=== PATIENT | male | born 1940 | race Caucasian/White ===

== ENCOUNTER 2022-10-29 10:14 | Emergency (ER) | payer MEDICARE, OTHER | END 2022-10-29 14:05 | disposition home or self-care (01) | LOC: JD.ED 10:14 | DX: J18.9 Pneumonia, unspecified organism (principal); Z88.1 Allergy status to other antibiotic agents | CPT/HCPCS: 36415; 71045; 71045-26; 80053; 83605; 83880; 84484; 85025; 86140; 93005; 93010; 99284; 99285 ==

== ENCOUNTER 2022-11-01 07:46 | Emergency (ER) | payer MEDICARE, OTHER | END 2022-11-01 10:13 | disposition home or self-care (01) | LOC: JD.ED 07:46 | DX: M79.604 Pain in right leg (principal); Z88.1 Allergy status to other antibiotic agents; Z79.82 Long term (current) use of aspirin | CPT/HCPCS: 93971-26-RT; 93971-RT; 99283 ==

== ENCOUNTER → 2024-06-11 | Day surgery (SDC) | payer MEDICARE, OTHER ==
[~2024-06-11] MED LIST: Dexamethasone 4 MG/ML 5 ML MDV ONE; EPINEPHrine 1 MG/ML SDV ONE; HYDROmorphone 0.5 MG/0.5 ML Syringe IVPUSH PRN; Ketorolac 15 MG/ML SDV ONE; Lactated Ringers 1,000 ML ONE; Lidocaine 1% 5 ML VIAL ONE; Midazolam 1 MG/ML 2 ML SDV ONE; Morphine 8 MG, EPINEPHrine 0.3 MG, Cefuroxime 750 MG, Ketorolac 30 MG, Sodium Chloride ... PRN; Ondansetron 4 MG/2 ML SDV IVPUSH PRN; Ondansetron 4 MG/2 ML SDV ONE; Phenylephrine 1% 10 MG/ML SDV ONE; Propofol 200 MG/20 ML SDV ONE; Ropivacaine 0.5% 5 MG/ML 30 ML SDV ONE; Sodium Chloride 0.9% 10 ML Syringe FLUSH PRN; Sodium Chloride 0.9% 10 ML Syringe FLUSH SCH; ceFAZolin 2 GM Vial ONE; ePHEDrine 50 MG/ML SDV ONE; fentaNYL 100 MCG/2 ML SDV IVPUSH PRN; fentaNYL 100 MCG/2 ML SDV ONE
[2024-06-11] MEDS: Lactated Ringers 1,000 ML IV SCH (08:15)
[2024-06-11] MEDS: Albuterol 0.083% 2.5 MG/3 ML Neb Soln NEB ONE (08:36)
[2024-06-11] MEDS: Acetaminophen/HYDROcodone 325-5 MG Tab PO PRN (13:33)
[2024-06-11] MEDS: Tranexamic Acid 1,000 MG/10 ML Vial ONE (13:33)
[2024-06-11] MEDS: Vancomycin 1 GM SDV ONE (13:35)
[2024-06-11] MEDS: Morphine 8 MG, EPINEPHrine 0.3 MG, Cefuroxime 750 MG, Ketorolac 30 MG, Sodium Chloride ... PRN (13:37)
== END | disposition home or self-care (01) ==
LOC: JD.SDS 07:43
PROVIDERS: ATTEND Orthopaedic Surgery
DX: M17.0 Bilateral primary osteoarthritis of knee (principal); E55.9 Vitamin D deficiency, unspecified; Z88.8 Allergy status to other drugs, medicaments and biological substances; Z79.2 Long term (current) use of antibiotics; Z79.899 Other long term (current) drug therapy; Z79.82 Long term (current) use of aspirin; Z87.891 Personal history of nicotine dependence
CPT/HCPCS: 0055T; 27447; 64447; 73560; 97116; 97161; A9270; C1713; C1776; J0171; J0690; J0697; J1100; J1885; J2250; J2270; J2371; J2405; J2704; J2795; J3010; J3370; J7120; 01402; 99100; J2272; J3490; J7620-GY